=== PATIENT | male | born 1955 | race Caucasian/White ===

== ENCOUNTER → 2018-01-04 | Day surgery (SDC) | payer OTHER ==
[~2018-01-04] VITALS: Ht 188 cm; Wt 102.1 kg
[~2018-01-04] MED LIST: APRISO0.375 GM PO; ASPIR 8181 MG PO; ASPIRIN EC325 M1 PO; BENICAR20 MG PO; CARVEDILOL25 MG PO; CELEXA20 MG PO; COZAAR 50 MG TA50 M1 PO; DILTIAZEM 24HR120 M2 PO; HYDROCODON-ACE1 EAC5 PO; ISOSORBIDE MONO60 M1 PO; LIPITOR80 MG PO; NEXIUM40 MG PO; NITROSTAT0.4 M1 INH; OMEGA-31000 M1 PO; OXYCODONE HCL 55 MG PO; RENEXA PO; XANAX 0.5 MG0.5 MG PO
--- NOTE | ~2018-01-04 | PROC ---
[address] [address] PROCEDURE REPORT Name: SHERMAN VELASQUEZ Room: [facility]..#: [id number] Admission: 01/04/18 Attend Phys: Carole Smith MD Discharge: Date of : 51 Report #: [id number] THIS REPORT FOR: //name// For GI report, please see the Provation report in Perceptive 7 content. By: 0708Medical Records Staff NABIL /SHAHANA
[2018-01-04 09:19] LABS: HEMATOCRIT 44.1 % (42.0-52.0); HEMOGLOBIN 14.6 gm/dL (14.0-18.0); MCH 29.2 pg (26.0-34.0); MCHC 33.1 g/dL (28.0-37.0); MCV 88.1 fL (80.0-100.0); MPV 8.6 fl. (7.2-11.1); RDW-CV 14.3 % (10.5-14.5); WBC 6.1 thou/uL (4.0-11.0)
[2018-01-04 09:27] LABS: CALCIUM 9.1 mg/dL (8.5-10.1); CREATININE 1.4 mg/dL (0.6-1.3); POTASSIUM 4.9 mmol/L (3.5-5.1)
[2018-01-04 09:37] LABS: ALBUMIN 3.7 g/dL (3.4-5.0); TOTAL BILIRUBIN 0.7 mg/dL (<0.1-1.0); TOTAL PROTEIN 7.4 g/dL (6.4-8.2)
--- NOTE | 2018-01-04 17:53 | EKG ---
[place] [address] ELECTROCARDIOGRAM REPORT Name: SHERMAN VELASQUEZ Room: [facility]#: [id number] Admission: 01/04/18 Attend Phys: Carole Smith MD Discharge: Date of : 51 Report #: [id number] THIS REPORT FOR: //name// [facility] Test Date: 2018-01-04 Test Time: 09:23:42 Pat Name: SHERMAN VELASQUEZ Department: Room: Gender: M [employer]: : 1955 Requested By: Carole Smith Order Number: [id number] Shukri MD: Usman Matta Measurements Intervals [place] Rate: 71 P: [place]: 152 QRS: -11 QRSD: 115 T: 152 QT: 486 QTc: 529 Interpretive Statements Atrial-paced complexes Inferior infarct, old Compared to ECG 11/19/2012 17:09:41 Sinus bradycardia no longer present Myocardial infarct finding still present Electronically Signed On 01-04-2018 17:53:11 CDT by Usman Matta [email or web address] <ELECTRONICALLY SIGNED> By: Usman Matta MD, [facility] 01/04/18 1753 2 2 Usman Matta MD, FACC /EPI
--- NOTE | 2018-01-07 06:05 | PATH ---
[address] [address] PATHOLOGY RPT PROCEDURE Name: FEDE VELASQUEZ Room: [facility] [place]#: [id number] Admission: 01/04/18 Date of : 51 Discharge: Report #: [id number] Path Case #: [id number] [facility] Accession Number: [id number] . 01 Material submitted: . PART A: CECAL POLYP PART B: RANDOM COLON BIOPSIES PART C: TRANSVERSE COLON POLYP PART D: RECTAL SIGMOID POLYP . 01 Clinician provided ICD-10: K51.80 K21.9 . 01 Clinical history: . Ulcerative colitis, GERD . 02 Diagnosis: A. Cecal polyp: - Suggestive of hyperplastic polyp, negative for cryptitis, granulomas, and dysplasia/adenomatous change. . B. Random colon biopsies: - Suggestive of chronic colitis, negative for cryptitis, granulomas, and dysplasia. See comment. . C. Transverse colon polyp: - Tubular adenoma, negative for high-grade dysplasia. . D. Rectosigmoid polyp: - Most consistent with hyperplastic polyp with mild acute and chronic inflammation, negative for granulomas and dysplasia/adenomatous change. See comment. (ANNIE:ronnie; 01/05/2018) QMS/01/05/2018 . 02 Comment: The provided clinical history of ulcerative colitis is noted. In the random colon biopsies (B), there is benign colonic mucosa one including a hyperplastic lymphoid follicle (Peyer's patch) and minimal basal lymphoplasmacytosis with crypt disarray, but no cryptitis seen. The histologic differential for the rectosigmoid polyp (D) includes an inflammatory pseudopolyp as there is cryptitis and crypt distortion in association with mild basal plasmacytosis. (ANNIE:ronnie; 01/05/2018) . 02 Electronically signed: . Vern Noble MD, [place] [address] PATHOLOGY RPT PROCEDURE Name: FEDE [facility]ELASQUEZ [id number] Admission: 01/04/18 Date of : 51 Discharge: Report #: [id number] Path Case #: [id number]- [id number] . 01 Gross description: . A. Received in formalin labeled "Fede Velasquez, cecal polyp," is a single segment of silva soft tissue measuring 0.3 cm in maximum dimension. The specimen is entirely submitted in cassette A1. . B. Received in formalin labeled "Fede Velasquez, random colon biopsies," are multiple segments of silva soft tissue measuring 1.1 x 0.6 x 0.1 cm in aggregate dimensions. The specimen is filtered and entirely submitted in cassette B1. . C. Received in formalin labeled "Fede Velasquez, transverse colon polyp," is a single segment of silva soft tissue measuring 0.3 cm in maximum dimension. The specimen is entirely submitted in cassette C1. . D. Received in formalin labeled "Fede Velasquez, rectal sigmoid polyp," is a single segment of silva soft tissue measuring 0.5 cm in maximum dimension. The specimen is entirely submitted in cassette D1. (TSD; 01/04/2018) TOB/TOB . 02 Pathologist provided ICD-10: D12.3, K63.5, K52.9 . 02 CPT . 092294, 895871, [id number], 175898 Specimen Comment: A courtesy copy of this report has been sent to Specimen Comment: [phone], . Specimen Comment: Report sent to / DR PIERCE Specimen Comment: A duplicate report has been generated due to demographic updates. Performed at: 01 [facility] [address] [facility] [facility] [address], [place], [place] [id number] MD Zachariah Schaefer MD Phone: [phone] Performed at: 02 [facility] [place] [address] [facility] [place], [place] [id number] MD Vern Noble MD Phone: [phone]
== END | disposition home or self-care (01) ==
LOC: M.SUR 08:14
PROVIDERS: Internal Medicine Gastroenterology
DX: Z12.11 Encounter for screening for malignant neoplasm of colon (principal); D12.3 Benign neoplasm of transverse colon; K63.5 Polyp of colon; K62.1 Rectal polyp; K52.9 Noninfective gastroenteritis and colitis, unspecified; K57.30 Diverticulosis of large intestine without perforation or abscess without bleeding; Q39.4 Esophageal web; K64.8 Other hemorrhoids; I11.0 Hypertensive heart disease with heart failure; I50.9 Heart failure, unspecified; I25.10 Atherosclerotic heart disease of native coronary artery without angina pectoris; E78.5 Hyperlipidemia, unspecified; I25.2 Old myocardial infarction; J44.9 Chronic obstructive pulmonary disease, unspecified; E03.9 Hypothyroidism, unspecified; F41.9 Anxiety disorder, unspecified; Z88.8 Allergy status to other drugs, medicaments and biological substances; Z98.0 Intestinal bypass and anastomosis status; Z79.899 Other long term (current) drug therapy; Z98.890 Other specified postprocedural states

== ENCOUNTER → 2018-07-16 | Outpatient (CLI) | payer MEDICARE, OTHER | LOC: M.CT 07:31 | DX: I87.1 Compression of vein (principal); I51.7 Cardiomegaly; J98.4 Other disorders of lung; Z88.8 Allergy status to other drugs, medicaments and biological substances ==

== ENCOUNTER → 2020-06-26 | Outpatient (CLI) | payer MEDICARE, OTHER | LOC: M.CT 08:17 | DX: Z12.2 Encounter for screening for malignant neoplasm of respiratory organs (principal); J43.9 Emphysema, unspecified; Z87.891 Personal history of nicotine dependence ==